=== PATIENT | female | born 1980 | race Two or more races ===

== ENCOUNTER 2018-10-23 07:57 | Day surgery (SDC) | payer MEDICAID ==
[2018-10-20 16:40] LABS: BASOPHILS # (AUTO) 0.1 X10'3 (0-0.2); EOSINOPHILS # (AUTO) 0.1 X10'3 (0-0.9); EOSINOPHILS % (AUTO) 1.6 % (0-6); LYMPHOCYTES # (AUTO) 1.6 X10'3 (1.1-4.8); LYMPHOCYTES % (AUTO) 18.1 % (21-51); MEAN CORPUSCULAR HEMOGLOBIN 32.1 PG (27.0-31.0); MEAN CORPUSCULAR HGB CONC 34.3 g/dL (33.0-36.5); MEAN CORPUSCULAR VOLUME 93.5 FL (78-98); MEAN PLATELET VOLUME 7.8 FL (7.4-10.4); MONOCYTES # (AUTO) 0.5 X10'3 (0-0.9); MONOCYTES % (AUTO) 6.1 % (2-12); NEUTROPHILS # (AUTO) 6.3 X10'3 (1.8-7.7); NEUTROPHILS % (AUTO) 73.2 % (42-75); PRE OP HEMATOCRIT 38.4 % (35.0-45.0); PRE OP HEMOGLOBIN 13.2 g/dL (12.0-16.0); PRE OP PLATELET COUNT 300 X10'3 (140-440)
[2018-10-20 16:54] LABS: ALBUMIN 3.1 G/DL (3.4-5.0); ALBUMIN/GLOBULIN RATIO 0.6 (1.1-1.5); ALKALINE PHOSPHATASE 95 IU/L (46-116); BLOOD UREA NITROGEN 2 MG/DL (7-18); BUN/CREATININE RATIO 3.2 (6.6-38.0); CALCIUM 8.5 MG/DL (8.5-10.1); CHLORIDE 102 MMOL/L (99-107); CREATININE 0.63 MG/DL (0.40-0.90); PRE OP ALT 42 U/L (30-65); PRE OP ANION GAP 11 (8-16); PRE OP AST 39 U/L (10-37); PRE OP BILIRUB, TOTAL 0.2 MG/DL (0.0-1.0); PRE OP GLUCOSE 105 MG/DL (70-104); PRE OP SODIUM 135 MMOL/L (135-145); TOTAL CARBON DIOXIDE 22.2 MMOL/L (24-32); TOTAL PROTEIN 8.2 G/DL (6.4-8.2); eGFR > 90 ML/MIN
[2018-10-20 16:57] LABS: PRE OP POTASSIUM 3.2 MMOL/L (3.4-5.1)
[2018-10-23] VITALS (8 sets, daily range): BP systolic 126–166; BP diastolic 81–99
[~2018-10-23] VITALS: Ht 154.9 cm; Wt 57.3 kg
[~2018-10-23 07:57] MED LIST: CHOL100046 PO; IBUP-1984 PO; OMEG1CAP2 PO; albuterol 2.5 MG/3 ML nebule NEB ONE; famotidine 20mg tablet PO ONE; ringers solution, lacted 1,000 ML IV SCH
[2018-10-23] MEDS ORDERED: ketorolac trometh. 30mg/ml inj. ONE (08:47)
[2018-10-23] MEDS ORDERED: ROPIVAcaine 0.5% (5mg/ml) 30ml vial ONE ×2 (08:47→09:02)
[2018-10-23] MEDS ORDERED: propofol inj 20 ML IV ONE (08:58)
[2018-10-23] MEDS ORDERED: fentaNYL/PF 50MCG/1 ML 2ML syringe ONE ×2 (08:58→11:13)
[2018-10-23] MEDS ORDERED: LIDOcaine 2% (20mg/ml) 5ml vial ONE (08:58)
[2018-10-23] MEDS ORDERED: midazolam 2 mg/2 ml injection ONE ×2 (08:59→11:13)
[2018-10-23] MEDS ORDERED: succinylcholine 20mg/ml inj IV ONE (08:59)
[2018-10-23] MEDS ORDERED: sevoflurane 250ml liquid IH ONE (09:10)
[2018-10-23] MEDS ORDERED: TRANEXAMIC ACID IV ONE ×2 (09:30→11:30)
[2018-10-23] MEDS ORDERED: NORMAL SALINE IV ONE ×2 (09:30→11:30)
[2018-10-23] MEDS ORDERED: VANCOMYCIN INJ 1000 MG in NORMAL SALINE 250ml IV.SOLN IV ONE (09:30)
[2018-10-23] MEDS ORDERED: clindamycin-Cleocin 900mg/D5W 50 ML IV ONE (09:30)
[2018-10-23] MEDS ORDERED: oxymetazoline 15 ML nasal spray NS ONE (09:42)
[2018-10-23] MEDS ORDERED: labetalol 20mg/4ml (5mg/ml) syringe IV ONE (11:14)
--- NOTE | 2018-10-23 11:34 | NUR ---
Received from OR via [facility] , accompanied by Anesthesiologist MURALI and report given by Anesthesiolgist. NASAL TRUMPET TO LEFT NARE. TAKEN OUT VIA ANESTHESIA SHORTLY AFTER. 20G PIV IN RIGHT FOOT RUNNIGN LR AT 100. Addendum: 10/23/18 at 1142 by Rajendra Navarro RN, RN Amended: Links added.
[2018-10-23] MEDS ORDERED: ringers solution, lacted 1,000 ML IV SCH (11:38)
[2018-10-23] MEDS ORDERED: hydrALAZINE 20mg/ml inj. IV PRN (11:40)
[2018-10-23] MEDS ORDERED: labetalol 20mg/4ml (5mg/ml) syringe IV PRN (11:40)
[2018-10-23] MEDS ORDERED: ondansetron/PF 4mg/2ml inj IV PRN (11:40)
--- NOTE | 2018-10-23 12:34 | NUR ---
ALL DC CRITERIA HAS BEEN MET. IV TAKEN OUT WITHOUT COMPLICATIONS. ALL INSTRUCTIONS COVERED AND ALL QUESTIONS ANSWERED. DRESSINGS CDI. OUT VIA WHEELCHAIR TO PERSONAL VEHICLE WHERE PATIENT WAS SECURED IN AND DRIVEN HOME BY FAMILY. SPOUSE TATUM PRESENT TO DRESS PATIENT AND HEAR DC. ALL QUESTIONS ANSWERED. OUT VIA PERSONAL WC WITH SPOUSE. Addendum: 10/23/18 at 1236 by Rajendra Navarro RN, RN Amended: Links added.
[2018-10-23 12:51] LABS: ISTAT ANION GAP 10 (8-12); ISTAT BUN < 3 mg/dL (6-19); ISTAT CL 104 mmol/L (99-107); ISTAT CREATININE 0.3 mg/dL (0.6-1.1); ISTAT GLUCOSE 98 mg/dL (70-104); ISTAT HGB 14.3 g/dl (12.0-16.0); ISTAT Hct 42 %PCV (35-48); ISTAT IONIZED CALCIUM 1.22 mmol/L (1.03-1.32); ISTAT K 4.7 mmol/L (3.5-5.1); ISTAT NA 138 mmol/L (135-145); ISTAT TOTAL CO2 24 mmol/L (24-32); ISTAT eGFR > 90 ML/MIN
[2018-10-23] MEDS ORDERED: acetaminophen 1,000mg/100ml IV 100 ML IV SCH (14:00)
== END 2018-10-23 12:34 | disposition home or self-care (01) ==
LOC: PAS 07:57 → PAS IN 07:57 → UNDOADMIN 07:57 → UNDODISIN 12:34 → PAS 12:34 → EDSTATUS 13:00
PROVIDERS: ATTEND Orthopaedic Surgery
DX: M19.011 Primary osteoarthritis, right shoulder (principal); F17.200 Nicotine dependence, unspecified, uncomplicated; M08.09 Unspecified juvenile rheumatoid arthritis, multiple sites; M19.012 Primary osteoarthritis, left shoulder; M75.02 Adhesive capsulitis of left shoulder; M25.511 Pain in right shoulder; M75.01 Adhesive capsulitis of right shoulder; Z88.0 Allergy status to penicillin; I00 Rheumatic fever without heart involvement
CPT/HCPCS: 23472; 36415; 71045; 80047; 80053; 85025; 87081; 93005; 93306; J0330; J1885; J2001; J2250; J2704; J3010; J3370; J7120; A4618; A4628; G0378; J2795; J3490

== ENCOUNTER 2020-08-25 11:48 | Emergency (ER) | payer MEDICAID ==
[~2020-08-25] VITALS: Ht 154.9 cm; Wt 50.9 kg
[~2020-08-25 11:48] MED LIST changes: -albuterol 2.5 MG/3 ML nebule NEB ONE; -famotidine 20mg tablet PO ONE; -ringers solution, lacted 1,000 ML IV SCH
[2020-08-25] MEDS ORDERED: ketorolac trometh inj. 60 MG/2 ML VIAL IM ONE (12:20)
[2020-08-25] MEDS ORDERED: orphenadrine citrate 60mg/2ml inj. IM ONE (12:20)
[2020-08-25] MEDS ORDERED: HYDROcodone/acetaminophen 5mg/325mg tablet PO ONE (12:20)
[2020-08-25 12:37] LABS: CLARITY,URINE CLEAR (Clear); COLOR,URINE YELLOW (Yellow); GLUCOSE, URINE NEGATIVE (Neg); KETONES,URINE NEGATIVE (Neg); LEUKOCYTE ESTERASE ,URINE SMALL (Neg); NITRITES, URINE NEGATIVE (Neg); OCCULT BLOOD,URINE SMALL (Neg); PH,URINE 6.5 (4.8-8.0); PROTEIN,URINE NEGATIVE (Neg)
[2020-08-25 12:40] LABS: UA COLLECTION TYPE CLN CATCH MIDSTREAM
[2020-08-25 12:41] LABS: URINE HCG NEGATIVE (NEG)
[2020-08-25 12:56] LABS: BACTERIA,URINE 1+ /HPF (Neg); MUCUS STRANDS NONE SEEN /LPF (Neg); SQUAMOUS EPITHELIAL CELL,UR MANY /LPF (FEW)
[2020-08-25 13:27] VITALS: BP 136/67
[2020-08-25] MEDS ORDERED: HYDR-3965 PO (13:49)
[2020-08-25] MEDS ORDERED: CYCL-1 PO (13:49)
== END 2020-08-25 14:05 | disposition home or self-care (01) ==
LOC: ER 11:48
DX: M54.10 Radiculopathy, site unspecified (principal); M79.18 Myalgia, other site; R53.1 Weakness; M19.90 Unspecified osteoarthritis, unspecified site; G89.29 Other chronic pain; Z98.890 Other specified postprocedural states; Z72.89 Other problems related to lifestyle; Z88.0 Allergy status to penicillin; Z79.899 Other long term (current) drug therapy
CPT/HCPCS: 72125; 81001; 81025; 96372; 99284; J1885; J2360

== ENCOUNTER 2023-10-01 15:07 | Outpatient (CLI) | payer MEDICAID ==
[~2023-10-01 15:07] MED LIST changes: +CYCL-1 PO
== END 2023-10-01 23:59 | disposition home or self-care (01) ==
LOC: RAD 15:07
PROVIDERS: ATTEND Family Medicine
DX: R10.32 Left lower quadrant pain (principal)
CPT/HCPCS: 76856; 93976